=== PATIENT | female | born 2000 | race Caucasian/White ===

== ENCOUNTER 2023-04-23 11:36 | Emergency (ER) | payer MEDICAID ==
[~2023-04-23] VITALS: Ht 160 cm; Wt 66.8 kg
[2023-04-23 11:57] VITALS: O2SAT 100
[2023-04-23] MEDS ORDERED: ACET-2708 MT (13:38)
[2023-04-23] MEDS ORDERED: AMOX1TAB16 MT (13:38)
[2023-04-23] MEDS ORDERED: IBUP-2028 MT (13:38)
[2023-04-23] MEDS ORDERED: CETI1TAB MT (13:39)
[2023-04-23] MEDS: KETOROLAC 60MG/2ML VIAL IM ONE (14:15)
[2023-04-23 14:25] VITALS: BP 142/82; PULSE 72; RESP 18; TEMP 98.4
== END 2023-04-23 14:28 | disposition home or self-care (01) ==
LOC: ER 11:36
DX: H66.91 Otitis media, unspecified, right ear (principal)
CPT/HCPCS: 81025; 96372; 99283; J1885; Z7610